=== PATIENT | male | born 1980 | race Caucasian/White ===

== ENCOUNTER 2018-03-03 13:51 | Emergency (ER) | payer OTHER ==
--- NOTE | 2018-03-03 13:58 | ER Report ---
History and Physical Time Seen By MD: 13:57 HPI/ROS CHIEF COMPLAINT: Chest palpitations, fast heart rate, anxiety HISTORY OF PRESENT ILLNESS: Patient is a 38-year-old male here with complaints of intermittent tachycardia, palpitations, chest tightness. He was evaluated on Thursday at urgent care at which time he was given hydroxyzine for symptom management. Patient reports that at approximately 12:00 today patient developed palpitation, chest tightness, anxiety which prompted evaluation. Patient is tachycardic in sinus rhythm at time of evaluation. Patient reports being moderately hypertensive at home though he is normotensive at time of evaluation. Patient denies headache, blurred vision, fevers, chills, nausea, vomiting. REVIEW OF SYSTEMS: Constitutional: No fever, no chills. Eyes: No discharge. ENT: No sore throat. Cardiovascular: + chest tightness, + palpitations Respiratory: No cough, no shortness of breath. Gastrointestinal: No abdominal pain, no vomiting. Genitourinary: No hematuria. Musculoskeletal: No back pain. Skin: No rashes. Neurological: No headache. Allergies: Coded Allergies: Sulfa (Sulfonamide Antibiotics) (Verified Allergy, Mild, UNKNOWN, 03/03/18) Home Meds Reported Medications Hydroxyzine HCl (Hydroxyzine HCl) 50 Mg/25 Ml Syrup 03/03/18 Metformin Hcl (METFORMIN HCL) 1,000 Mg Tablet, 1 TAB PO BID, TAB 03/03/18 Lisinopril (LISINOPRIL) 10 Mg Tablet, 10 MG PO QDAY, TAB 03/03/18 Hydrochlorothiazide (HYDROCHLOROTHIAZIDE) 25 Mg Tablet, 1 TAB PO QDAY, TAB 03/03/18 Hx Smoking: No Smoking Status: Never Smoker Hx Substance Use Disorder: No Constitutional Vital Sign - Last 24 Hours 03/03/18 13:55 Temp 99.5 Pulse 103 Resp 18 B/P (MAP) 135/89 Pulse Ox 94 O2 Delivery Room Air Physical Exam General Appearance: The patient is alert, has no immediate need for airway protection and no signs of toxicity. Eyes: Pupils equal and round no pallor or injection. ENT, Mouth: Mucous membranes are moist. Respiratory: There are no retractions, lungs are clear to auscultation. Cardiovascular: + tachycardia Gastrointestinal: Abdomen is soft and non tender, no masses, bowel sounds normal. Neurological: No focal deficits Skin: Warm and dry, no rashes. Musculoskeletal: Neck is supple non tender. DIFFERENTIAL DIAGNOSIS: After history and physical exam differential diagnosis was considered for dehydration, anemia, electrolyte imbalance, anxiety Medical Decision Making Data Points Result Diagram: 03/03/18 1359 03/03/18 1359 Laboratory Hematology Test 03/03/18 13:59 Red Blood Count 6.37 M/uL (4.00-5.60) Mean Corpuscular Volume 82.9 fL (80.0-96.0) Mean Corpuscular Hemoglobin 28.7 pg (26.0-33.0) Mean Corpuscular Hemoglobin Concent 34.6 g/dL (32.0-36.0) Red Cell Distribution Width 14.2 % (11.5-14.5) Mean Platelet Volume 8.9 fL (7.2-11.1) Neutrophils (%) (Auto) 58.2 % (39.4-72.5) Lymphocytes (%) (Auto) 30.1 % (17.6-49.6) Monocytes (%) (Auto) 8.1 % (4.1-12.4) Eosinophils (%) (Auto) 2.9 % (0.4-6.7) Basophils (%) (Auto) 0.7 % (0.3-1.4) Nucleated RBC Relative Count (auto) 0.1 /100WBC Neutrophils # (Auto) 5.0 K/uL (2.0-7.4) Lymphocytes # (Auto) 2.6 K/uL (1.3-3.6) Monocytes # (Auto) 0.7 K/uL (0.3-1.0) Eosinophils # (Auto) 0.2 K/uL (0.0-0.5) Basophils # (Auto) 0.1 K/uL (0.0-0.1) Nucleated RBC Absolute Count (auto) 0.00 K/uL D-Dimer Quantitative (PE/DVT) < 0.27 ug/ml (0-0.50) Sodium Level 137 mmol/L (137-145) Potassium Level 3.6 mmol/L (3.5-5.0) Chloride Level 95 mmol/L (98-107) Carbon Dioxide Level 29 mmol/L (22-30) Blood Urea Nitrogen 15 mg/dl (9-21) Creatinine 0.80 mg/dl (0.66-1.25) Glomerular Filtration Rate Calc > 60.0 Random Glucose 231 mg/dl (75-110) Calcium Level 10.0 mg/dl (8.4-10.2) Total Bilirubin 0.7 mg/dl (0.2-1.3) Aspartate Amino Transf (AST/SGOT) 42 U/L (0-35) Alanine Aminotransferase (ALT/SGPT) 55 U/L (0-56) Alkaline Phosphatase 77 U/L (0-126) Troponin I < 0.012 ng/ml Total Protein 7.9 gm/dl (6.3-8.2) Albumin 4.3 g/dl (3.5-5.0) Chemistry Test 03/03/18 13:59 White Blood Count 8.5 k/uL (4.5-11.0) Red Blood Count 6.37 M/uL (4.00-5.60) Hemoglobin 18.3 g/dL (14.0-18.0) Hematocrit 52.8 % (42.0-52.0) Mean Corpuscular Volume 82.9 fL (80.0-96.0) Mean Corpuscular Hemoglobin 28.7 pg (26.0-33.0) Mean Corpuscular Hemoglobin Concent 34.6 g/dL (32.0-36.0) Red Cell Distribution Width 14.2 % (11.5-14.5) Platelet Count 259 K/uL (150-450) Mean Platelet Volume 8.9 fL (7.2-11.1) Neutrophils (%) (Auto) 58.2 % (39.4-72.5) Lymphocytes (%) (Auto) 30.1 % (17.6-49.6) Monocytes (%) (Auto) 8.1 % (4.1-12.4) Eosinophils (%) (Auto) 2.9 % (0.4-6.7) Basophils (%) (Auto) 0.7 % (0.3-1.4) Nucleated RBC Relative Count (auto) 0.1 /100WBC Neutrophils # (Auto) 5.0 K/uL (2.0-7.4) Lymphocytes # (Auto) 2.6 K/uL (1.3-3.6) Monocytes # (Auto) 0.7 K/uL (0.3-1.0) Eosinophils # (Auto) 0.2 K/uL (0.0-0.5) Basophils # (Auto) 0.1 K/uL (0.0-0.1) Nucleated RBC Absolute Count (auto) 0.00 K/uL D-Dimer Quantitative (PE/DVT) < 0.27 ug/ml (0-0.50) Glomerular Filtration Rate Calc > 60.0 Calcium Level 10.0 mg/dl (8.4-10.2) Total Bilirubin 0.7 mg/dl (0.2-1.3) Aspartate Amino Transf (AST/SGOT) 42 U/L (0-35) Alanine Aminotransferase (ALT/SGPT) 55 U/L (0-56) Alkaline Phosphatase 77 U/L (0-126) Troponin I < 0.012 ng/ml Total Protein 7.9 gm/dl (6.3-8.2) Albumin 4.3 g/dl (3.5-5.0) Coagulation Test 03/03/18 13:59 D-Dimer Quantitative (PE/DVT) < 0.27 ug/ml EKG/Imaging EKG Interpretation 12 lead EK bpm Rhythm: normal sinus rhythm [place]: normal QRS: normal ST segments: No ischemic changes. Monitor Interpretation: Sinus Tachycardia ED Course/Re-evaluation ED Course Patient is a 38-year-old male here with complaints of palpitations, chest tightness, anxiety sensation which is been intermittent. Patient reportedly was seen at urgent care on Thursday and started on hydroxyzine or Atarax without significant relief of symptoms. Today he developed similar symptoms approximately 12:00 and was noted to have mild hypertension at home prompting evaluation. EKG showed no ischemic changes, rate 99 bpm. chest x-ray showed no acute findings. A d-dimer was ordered due to the patient's complaints of chest tightness and tachycardia and vague complaints of chest discomfort. D-dimer was negative. Cardiac enzymes were also ordered and were found to be negative. Patient was not found to be anemic, electrolytes were within normal limits. Patient was given a liter normal saline bolus for hydration. I updated the patient regarding the findings he voiced understanding. Patient was advised to follow-up with cardiology and consider a Holter monitor and to follow-up with his family doctor for blood pressure rechecks and consideration for anti- hypertensives if blood pressure remains elevated. Patient was hemodynamically stable at time of discharge. Decision to Disposition Date: March 03, 2018 Decision to Disposition Time: 14:55 Depart Departure Latest Vital Signs Vital Signs Date Time Temp Pulse Resp B/P (MAP) Pulse Ox O2 Delivery O2 Flow Rate FiO2 03/03/18 13:55 99.5 103 18 135/89 94 Room Air Impression: Primary Impression: Palpitations Additional Impressions: Chest tightness Tachycardia Condition: Improved Disposition: HOME OR SELF-CARE Patient Instructions: Palpitations (ED) Additional Instructions: Please follow-up with your family doctor next week for repeat blood pressure checks. Please consider contacting her materials intern her family doctor to coordinate a Holter monitor for cardiac rhythm analysis. Please return promptly if he developed chest pain, shortness of breath, chest tightness, palpitations, abdominal pain, nausea, fevers or chills. Problem Qualifiers RITIKA DELGADILLO DO March 03, 2018 13:57
[2018-03-03] MEDS ORDERED: METF-421 PO (14:00)
[2018-03-03] MEDS ORDERED: HYDR-2966 PO (14:00)
[2018-03-03] MEDS ORDERED: LISI-362 PO (14:00)
[2018-03-03] MEDS ORDERED: HYDR50SY (14:01)
[2018-03-03] MEDS ORDERED: NS(*) 0.9% 1000 ML BAG 1,000 ML IV ONE (14:10)
--- NOTE | 2018-03-03 14:19 | EKG ---
FACILITY: [facility] PATIENT NAME: TAPAN DAVIS : [id number] MR: [id number] V: [id number] EXAM DATE: ORDERING PHYSICIAN: RITIKA DELGADILLO TECHNOLOGIST: DOUGIE Aguilar Reason : Blood Pressure : / mmHG Vent. Rate : 099 BPM Atrial Rate : 099 BPM P-R Int : 168 ms QRS Dur : 100 ms QT Int : 352 ms P-R-T Axes : 044 083 040 degrees QTc Int : 451 ms Normal sinus rhythm Cannot rule out Anterior infarct , age undetermined Abnormal ECG No previous ECGs available Confirmed by SABA SALDAÑA ([id number]) on 03/04/2018 6:41:07 AM Referred By: ELIE Confirmed By:SABA SALDAÑA
[2018-03-03 14:24] LABS: PLATELET COUNT, AUTOMATED 259 K/uL (150-450)
--- NOTE | 2018-03-03 14:47 | RADIOLOGY IMAGING REPORT ---
FACILITY: [facility] - [place], [place] PATIENT NAME: Figueroa Boykin : 1980 MR: [id number] V: [id number] EXAM DATE: ORDERING PHYSICIAN: RITIKA DELGADILLO TECHNOLOGIST: Location: [facility] Patient: Figueroa Boykin : 1980 Visit/Account:[id number] Date of Sevice: 03/03/2018 CHEST PA AND LAT Provided history: Chest Pain Additional pertinent history: none Two views obtained COMPARISON STUDIES: No relevant priors FINDINGS: Support lines and tubes: None. Lungs / pleura / noy: No infiltrate, effusion or pneumothorax. Heart / mediastinum /vessels: Negative Nodules / masses: None significant Bones / body wall: Negative Lower neck / Upper abdomen: Negative IMPRESSION: No acute or significant chronic cardiopulmonary disease. Report Dictated By: Hilario Eduardo MD at 03/03/2018 2:42 PM Report E-Signed By: Hilario Eduardo MD at 03/03/2018 2:43 PM WSN:[id number]
[2018-03-03 15:00] VITALS: BP 120/74
== END 2018-03-03 15:07 | disposition home or self-care (01) ==
LOC: ER 14:00
DX: R00.0 Tachycardia, unspecified (principal); R07.89 Other chest pain; R00.2 Palpitations
CPT/HCPCS: 71046; 84484; 85025; 85379; 93005; 96360; 99284; J7030; 82040; 82247; 82310; 82374; 82435; 82565; 82947; 84075; 84132; 84155; 84295; 84450; 84460; 84520